=== PATIENT | female | born 1940 | race Caucasian/White ===

== ENCOUNTER 2017-03-29 19:24 | Emergency (ER) | payer MEDICARE, MEDICAID ==
[~2017-03-29] VITALS: Ht 165.1 cm; Wt 101.0 kg
[~2017-03-29 19:24] MED LIST: ASCO500 PO; ASPI81 PO; DOCU1CAP39 PO; LEVO.025 PO; LISI10TA PO; LORA10TA PO; MELO15 PO; OMEG1200 PO; OMEP20TA PO; PERC5TAB12 PO; SYMB160A INH; TRAZ150T75 PO; URICALM PO; VITA20002 PO
[2017-03-29 19:29] VITALS: BP 167/93; PULSE 75; RESP 16; TEMP 98.2; O2SAT 96
--- NOTE | 2017-03-29 20:42 | PD ---
HPI Chief Complaint: Fall Time Seen by Provider: 20:41 Travel History International Travel<30 days: No Contact w/Intl Traveler<30days: No Traveled to known affect area: No History of Present Illness HPI 76-year-old female came to the emergency room with history of fall after tripping over her puppy. She twisted her right ankle and ended up falling on her face. She has a forehead laceration and a small nose laceration. Patient did not lose consciousness. She is on one 81 mg of aspirin every day. Currently she is awake. There is a language barrier but she is answering questions appropriately to her daughter was doing the translation. Patient was completely fine prior to the accident. She does not remember her last tetanus shot. [facility] Past Medical History Narrative Medical List of her past medical, surgical, social and family history is reviewed from the nursing note. 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 ) Heart Rhythm Problems: Yes Cancer: No Cardiovascular Problems: Yes (irreg heart) High Cholesterol: No Chemotherapy: No Chest Pain: Yes Congestive Heart Failure: No COPD: No Cerebrovascular Accident: No Diabetes: No Diminished Hearing: No Endocrine: No GERD: No Glaucoma: No Genitourinary: No Headaches: No Hepatitis: Yes (HEPATITIS C) Hiatal Hernia: No Hypertension: Yes Kidney Stones: No Musculoskeletal: Yes Neurologic: No Psychiatric: No Respiratory: Yes Myocardial Infarction: No Radiation Therapy: No Renal Failure: No Seizures: No Sickle Cell Disease: No Sleep Apnea: Yes Thyroid Disease: Yes Ulcer: No Menopausal: Yes Past Surgical History Abdominal Surgery: No AICD: No Cardiac Surgery: No Section: Yes (X3) Ear Surgery: No Endocrine Surgery: No Eye Surgery: No Genitourinary Surgery: No Gynecologic Surgery: Yes (3 C-SECTIONS) Oral Surgery: No Pacemaker: No Thoracic Surgery: No Other Surgery: Yes (THYROIDECTOMY) Social History Alcohol Use: No Tobacco Use: No Substance Use: No Allergies-Medications (Allergen,Severity, Reaction): Coded Allergies: No Known Allergies (Verified , 03/29/17) Comments No known drug allergies. Reported Meds & Prescriptions Reported Meds & Active Scripts Active Keflex (Cephalexin) 500 Mg Cap 500 Mg PO Q12H 7 Days Reported Phenazopyridine HCl 100 Mg Tab 100 Mg PO DAILY PRN Omeprazole 20 Mg Cap 20 Mg PO DAILY Zestoretic (Lisinopril-Hctz) 10-12.5 Mg Tab 1 Tab PO DAILY Symbicort Inh (Budesonide/Formoterol Fumarate) 160-4.5 Mcg/Act Aero 2 Puff INH DAILY PRN Aspirin 81 (Aspirin) 81 Mg Tabdr 81 Mg PO DAILY Levothyroxine (Levothyroxine Sodium) 25 Mcg Tab 25 Mcg PO DAILY Trazodone HCl 150 Mg Tablet 150 Mg PO HS Mobic (Meloxicam) 15 Mg Tab 15 Mg PO DAILY PRN Allerclear (Loratadine) 10 Mg Tablet 10 Mg PO DAILY PRN D3 (Cholecalciferol) 1,000 Unit Tab 1,000 Units PO DAILY Ascorbic Acid 500 Mg Tab 500 Mg PO DAILY [place] 3-6-9 Complex ([place] 3 Fatty Acids-[place] 6 FA) 1 Cap Cap 1 Cap PO DAILY Narrative Medication List of her home medications reviewed from the nursing note. Review of Systems Except as stated in HPI: all other systems reviewed are Neg Physical Exam Narrative GENERAL: Awake, alert, elderly, mild distress SKIN: Focused skin assessment warm/dry. HEAD: Forehead laceration of 1 cm with no active bleeding EYES: Pupils equal and round. No scleral icterus. No injection or drainage. ENT: No nasal bleeding or discharge. Mucous membranes pink and moist. Small laceration on the bridge of the nose. Mild oozing of blood NECK: Trachea midline. No JVD. CARDIOVASCULAR: Regular rate and rhythm. No murmur appreciated. RESPIRATORY: No accessory muscle use. Clear to auscultation. Breath sounds equal bilaterally. GASTROINTESTINAL: Abdomen soft, non-tender, nondistended. Hepatic and splenic margins not palpable. MUSCULOSKELETAL: No obvious deformities. No clubbing. No cyanosis. No edema. NEUROLOGICAL: Awake and alert. No obvious cranial nerve deficits. Motor grossly within normal limits. Normal speech. PSYCHIATRIC: Appropriate mood and affect; insight and judgment normal. Data Data Last Documented VS Orders Ct Brain W/O Iv Contrast(Rout) (03/29/17 ) Tetanus/Diphtheria Tox Adult (Tetanus/Di (03/29/17 21:15) Acetaminophen (Tylenol) (03/29/17 21:15) Ankle, Complete ([id number]) (03/29/17 ) ^ Manjinder Bandage (03/29/17 22:16) MDM Medical Decision Making Medical Screen Exam Complete: Yes Emergency Medical Condition: Yes Medical Record Reviewed: Yes Differential Diagnosis Intracranial bleed, contusion, laceration Narrative Course 10:19 PM the laceration was sutured by the PA. Please refer to her procedure note. CT head was negative. Patient was given a tetanus shot. I'll discharge her home with antibiotic prescription for prophylaxis. Procedures EKG Prior to Arrival: No Diagnosis Primary Impression: Fall Qualified Code: W19.XXXA - Fall, initial encounter Additional Impression: Facial injury Qualified Code: S09.93XA - Facial injury, initial encounter Referrals: Primary Care Physician Additional Instructions: Please return to the ER if the condition worsens or any other new concerns. The stitches need to come out in 7-10 days. Apply the antibiotic ointment twice a day until the stitches are out. Take the medication as per the prescription direction. Med/Other Pt SpecificInfo: Prescription(s) given Scripts Cephalexin (Keflex)500 Mg Sot910 Mg PO Q12H 7 Days Ref 0 Prov:Kelly Nicholson MD 03/29/17 Disposition: 01 DISCHARGE HOME Condition: Stable Kelly Nicholson MD Mar 29, 2017 20:41 Med/Other Pt SpecificInfo: Prescription(s) given Scripts Cephalexin (Keflex)500 Mg Tdf810 Mg PO Q12H 7 Days Ref 0 Prov:Kelly Nicholson MD 03/29/17 Disposition: DISCHARGE HOME Condition: Stable Kelly Nicholson MD Mar 29, 2017 20:41
[2017-03-29] MEDS ORDERED: OMEP20CA2 PO (21:10)
[2017-03-29] MEDS ORDERED: KLS10TAB6 PO (21:10)
[2017-03-29] MEDS ORDERED: TRAZ1TAB45 PO (21:10)
[2017-03-29] MEDS ORDERED: PHEN-427 PO (21:10)
[2017-03-29] MEDS ORDERED: LEVO25TA4 PO (21:10)
[2017-03-29] MEDS ORDERED: MOBI15TA PO (21:10)
[2017-03-29] MEDS ORDERED: ASCO500T PO (21:10)
[2017-03-29] MEDS ORDERED: ASPI-110 PO (21:10)
[2017-03-29] MEDS ORDERED: D31000TA PO (21:10)
[2017-03-29] MEDS ORDERED: LISI-585 PO (21:10)
[2017-03-29] MEDS ORDERED: SYMB160A INH (21:10)
[2017-03-29] MEDS ORDERED: OMEGCAP19 PO (21:10)
[2017-03-29] MEDS ORDERED: TETANUS/DIPHTHERIA TOXOID ADULT 0.5 ML VIAL IM ONE (21:15)
[2017-03-29] MEDS ORDERED: ACETAMINOPHEN 325 MG TAB PO ONE (21:15)
--- NOTE | 2017-03-29 21:53 | RADRPT ---
EXAM DATE/TIME: 03/29/2017 21:24 [facility] COMPARISON: No previous studies available for comparison. INDICATIONS : Patient fell hitting front of head. RADIATION DOSE: 56.35 CTDIvol (mGy) MEDICAL HISTORY : Hypertension. SURGICAL HISTORY : None. ENCOUNTER: Initial ACUITY: 1 day PAIN SCALE: 5/10 LOCATION: cranial TECHNIQUE: Multiple contiguous axial images were obtained of the head. Using automated exposure control and adj ustment of the mA and/or kV according to patient size, radiation dose was kept as low as reasonably a chievable to obtain optimal diagnostic quality images. FINDINGS: CEREBRUM: There is mild atrophy. Ventricles are normal. No evidence of midline shift, mass lesion, hemorrhage or acute infarction. No extra-axial fluid collections are seen. POSTERIOR FOSSA: The cerebellum and brainstem are intact. The 4th ventricle is midline. The cerebellopontine angle i s unremarkable. EXTRACRANIAL: Visualized sinuses are clear. SKULL: The calvaria is intact. No evidence of skull fracture. CONCLUSION: No acute abnormality is identified. Octavio Soriano MD on March 29, 2017 at 21:49 Board Certified Radiologist. This report was verified electronically.
--- NOTE | 2017-03-29 22:09 | PD ---
Physical Exam Date Seen by Provider: Mar 29, 2017 Time Seen by Provider: 22:08 Narrative For full history and physical examination please see previous provider's note. I repaired the laceration to patient's forehead. Data Data Last Documented VS Vital Signs Date Time Temp Pulse Resp B/P Pulse Ox O2 Delivery O2 Flow Rate FiO2 03/29/17 19:29 98.2 75 16 167/[address] Brain W/O Iv Contrast(Rout) (03/29/17 ) Tetanus/Diphtheria Tox Adult (Tetanus/Di (03/29/17 21:15) Acetaminophen (Tylenol) (03/29/17 21:15) Ankle, Complete (Src0drm) (03/29/17 ) MDM Supervised Visit with MAJOR: Yes Procedures Procedure Narrative LACERATION LOCATION: Forehead LENGTH: 1 1/2 cm NUMBER OF STITCHES/GUTIERREZ: 5 stitches REPAIR: The area of the laceration was prepped with Betadine and sterilely draped. The laceration was infiltrated with 1% lidocaine. The wound was copiously irrigated and explored without evidence of foreign body, tendon injury or neurovascular injury. The wound was closed using 5-0 Prolene. This was a 1 layer repair. A sterile dressing was applied. The patient was advised to keep the dressing clean and dry. Patient tolerated the procedure well. Lulu Obrien Mar 29, 2017 22:09
--- NOTE | 2017-03-29 22:09 | RADRPT ---
EXAM DATE/TIME: 03/29/2017 21:37 [facility] COMPARISON: No previous studies available for comparison. INDICATIONS : Right ankle pain post fall today MEDICAL HISTORY : None. SURGICAL HISTORY : None. ENCOUNTER: Initial ACUITY: 1 day PAIN SCORE: 5/10 LOCATION: Right entire ankle FINDINGS: 3 views of the right ankle demonstrate no fracture or dislocation. The bones are undermineralized. An kle mortise is intact. No soft tissue abnormality or radiopaque foreign body is identified. CONCLUSION: Undermineralized bones. No acute abnormality is identified. Octavio Soriano MD on March 29, 2017 at 22:05 Board Certified Radiologist. This report was verified electronically.
[2017-03-29] MEDS ORDERED: CEPH-460 PO (22:21)
== END 2017-03-29 22:40 | disposition home or self-care (01) ==
LOC: NEPD 19:24
DX: S01.81XA Laceration without foreign body of other part of head, initial encounter (principal); S01.21XA Laceration without foreign body of nose, initial encounter; I10 Essential (primary) hypertension; B19.20 Unspecified viral hepatitis C without hepatic coma; M19.90 Unspecified osteoarthritis, unspecified site; W01.0XXA Fall on same level from slipping, tripping and stumbling without subsequent striking against object, initial encounter; X50.1XXA Overexertion from prolonged static or awkward postures, initial encounter; Z23 Encounter for immunization
CPT/HCPCS: 12011; 70450; 73610; 90714; 96372